=== PATIENT | male | born 1965 | race Caucasian/White ===

== ENCOUNTER 2016-06-08 20:45 | Emergency (ER) | payer OTHER ==
[2016-06-08 21:17] VITALS: BP 113/70
--- NOTE | 2016-06-08 21:41 | UC ---
Throat Pain/Nasal Edgar HPI - HPI Summary HPI Summary: The patient comes in today for: 1. Sore throat Onset: Sore throat for a month. Palliative/provocative: Salt water makes it better. Sitting up makes it better. Laying down makes it worse. Quality: Burning feeling. Like a raw feeling. Region: Above the sternal notch. Severity: 4/10 Time: Constant. Associated symptoms: Previous disease: He states that he had a throat dilation about a year ago. This was done at Dr. Fleming's office. He was put on Reglan for spasm. Hoarseness: Sometimes. Primary care provider: He sees a doctor at [facility]. 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 Endocrine History Of: Denies: Diabetes, Thyroid Disease, Hyperthyroidism, Hypothyroidism, Dyslipidemia Cardiovascular History Of: Reports: Hypertension Denies: Cardiac Disorders, Pacemaker/ICD, Myocardial Infarction, Congestive Heart Failure, Atrial Fibrillation, Deep Vein Thrombosis, Bleeding Disorders Respiratory History Of: Denies: COPD, Asthma, Bronchitis, Pneumonia, Pulmonary Embolism GI/ History Of: Reports: Gastroesophageal Reflux Denies: Ulcer, Gastrointestinal Bleed, Gall Bladder Disease, Kidney Stones, Diverticulitis, Renal Disease, Urosepsis Neurological History Of: Denies: TIA, CVA, Dementia, Seizures, Migraine Psychological History Of: Denies: Anxiety, Depression, Bipolar Disorder, Schizophrenia, Post Traumatic Stress Disorder Cancer History Of: Denies: Lung Cancer, Colorectal Cancer, Breast Cancer, Prostate Cancer, Cervical Cancer Other History Of: Negative For: HIV, Hepatitis B, Hepatitis C, Anticoagulant Therapy - Surgical History Surgical History: Yes Surgery Procedure, Year, and Place: laminectomy -1988. gall bladder removal - 1997. appendectomy. tonsillectomy. bilateral knee arthoscopy. hernia -2009 - Family History Known Family History: Positive: Hypertension - parents Negative: Cardiac Disease, Diabetes - Social History Occupation: Employed Full-time Alcohol Use: None Substance Use Type: None Smoking Status (MU): Never Smoked Tobacco - Immunization History Most Recent Influenza Vaccination: FALL 2015 Review of Systems Constitutional: Negative Skin: Negative Eyes: Negative ENT: Sore Throat Respiratory: Negative Cardiovascular: Negative Gastrointestinal: Negative Genitourinary: Negative All Other Systems Reviewed And Are Negative: Yes Physical Exam Triage Information Reviewed: Yes Appearance: Well-Appearing, No Pain Distress, Well-Nourished Vital Signs: Initial Vital Signs Temp 98.4 F 06/08/16 21:09 Pulse 81 06/08/16 21:09 Resp 20 06/08/16 21:09 BP 113/70 06/08/16 21:09 Pulse Ox 97 06/08/16 21:09 Vital Signs Reviewed: Yes Eyes: Positive: Conjunctiva Clear. Negative: Discharge ENT: Positive: Hearing grossly normal. Negative: Pharyngeal erythema, Nasal congestion, Nasal drainage, TM bulging, TM dull, TM red, Tonsillar swelling, Tonsillar exudate Dental: Negative: Gross Decay/Caries @, Dental Fracture @ Neck: Positive: Supple, Nontender, No Lymphadenopathy. Negative: Nuchal Rigidity Respiratory: Positive: Chest non-tender, Lungs clear, No respiratory distress, No accessory muscle use. Negative: Crackles, Wheezing Cardiovascular: Positive: RRR, No Murmur Abdomen Description: Positive: Nontender, No Organomegaly, Soft. Negative: Distended, Guarding Musculoskeletal: Positive: Strength Intact, ROM Intact Neurological: Positive: Alert, Muscle Tone Normal Psychological: Positive: Age Appropriate Behavior, Consolable Skin: Positive: Other - He has a vascular hemanigoma of the face.. Negative: rashes, breakdown Diagnostics - Laboratory Diagnostic Studies Completed/Ordered: Strep test: (+) Throat Pain/Nasal Course/Dx - Course Course Of Treatment: Patient told of positive strep test. - Differential Dx/Diagnosis Differential Diagnosis/HQI/PQRI: Laryngitis, Pharyngitis, Tonsillitis Provider Diagnoses: Strep throat. Discharge - Discharge Plan Condition: Stable Disposition: HOME Patient Education Materials: Strep Throat (ED) Referrals: MISAEL Aranda [Primary Care Provider] - 1 Week (Please see your primary care provider in about a week to see how well you are doing. If you get worse, please be seen sooner.)
[2016-06-08] MEDS ORDERED: Penicillin VK TAB* 250 MG PO ONE (22:19)
== END 2016-06-08 22:38 | disposition home or self-care (01) ==
LOC: UCCORT 20:45
DX: J02.0 Streptococcal pharyngitis (principal); Z90.49 Acquired absence of other specified parts of digestive tract
CPT/HCPCS: 87651; 99212; A9270-GY; G0463

== ENCOUNTER 2016-08-21 10:03 | Emergency (ER) | payer MEDICAID, OTHER ==
--- NOTE | 2016-08-21 11:56 | UC ---
Ear Complaint HPI - HPI Summary HPI Summary: 50 male presents with complaints of left ear feeling plugged and being unable to hear out of it, symptoms beginning Saturday08/18/16. Patient states he tried running hot water from the shower in his ears without relief. Denies any decreased hearing or feeling plugged in left ear. Denies discharge from the ear , sore throat, fever/chills, discharge from ears and dizziness. Denies PMHx. Has not taken any medication for his symptoms. Has been swimming over the weekend at [employer]. - History of Current Complaint Chief Complaint: UCEar Stated Complaint: EAR PAIN Time Seen by Provider: 08/21/16 11:41 Hx Obtained From: Patient Onset/Duration: Sudden Onset, Lasting Days - 3 Severity Initially: Mild Severity Currently: Moderate Pain Intensity: 2 Pain Scale Used: 0-10 Numeric Aggravating Factors: Nothing Alleviating Factors: Nothing Associated Signs/Symptoms: Positive: Hearing Loss, Foreign Body Sensation - "plugged". Negative: Trauma to Ear, Swelling @, URI Symptoms - Allergies/Home Medications Allergies/Adverse Reactions: Allergies Allergy/AdvReac Type Severity Reaction Status Date / Time No Known Allergies Allergy Verified 08/21/16 11:40 Home Medications: Home Medications Bismuth Subsalicylate [Pepto-Bismol Max Strength] 525 mg PO Q6H PRN 08/21/16 [ History Confirmed 08/21/16] PMH/Surg Hx/FS Hx/Imm Hx Endocrine History Of: Denies: Diabetes, Thyroid Disease, Hyperthyroidism, Hypothyroidism, Dyslipidemia Cardiovascular History Of: Reports: Hypertension Denies: Cardiac Disorders, Pacemaker/ICD, Myocardial Infarction, Congestive Heart Failure, Atrial Fibrillation, Deep Vein Thrombosis, Bleeding Disorders Respiratory History Of: Denies: COPD, Asthma, Bronchitis, Pneumonia, Pulmonary Embolism GI/ History Of: Reports: Gastroesophageal Reflux Denies: Ulcer, Gastrointestinal Bleed, Gall Bladder Disease, Kidney Stones, Diverticulitis, Renal Disease, Urosepsis Neurological History Of: Denies: TIA, CVA, Dementia, Seizures, Migraine Psychological History Of: Denies: Anxiety, Depression, Bipolar Disorder, Schizophrenia, Post Traumatic Stress Disorder Cancer History Of: Denies: Lung Cancer, Colorectal Cancer, Breast Cancer, Prostate Cancer, Cervical Cancer Other History Of: Negative For: HIV, Hepatitis B, Hepatitis C, Anticoagulant Therapy - Surgical History Surgical History: Yes Surgery Procedure, Year, and Place: laminectomy -1988. gall bladder removal - 1997. appendectomy. tonsillectomy. bilateral knee arthoscopy. hernia -2009 - Family History Known Family History: Positive: Hypertension - parents Negative: Cardiac Disease, Diabetes - Social History Alcohol Use: None Substance Use Type: Excessive Caffeine Substance Use Comment - Amount & Last Used: 4 Liters or Regular Caffeinated Soda Daily Smoking Status (MU): Never Smoked Tobacco Household Exposure Type: Cigarettes - Immunization History Most Recent Influenza Vaccination: FALL 2015 Vaccination Up to Date: Yes Review of Systems Constitutional: Negative Skin: Negative ENT: Ear Ache Respiratory: Negative Cardiovascular: Negative Musculoskeletal: Negative Neurological: Negative All Other Systems Reviewed And Are Negative: Yes Physical Exam Triage Information Reviewed: Yes Appearance: Well-Appearing, No Pain Distress, Well-Nourished Vital Signs: Initial Vital Signs Temp 98.5 F 08/21/16 11:37 Pulse 80 08/21/16 11:37 Resp 16 08/21/16 11:37 BP 115/61 08/21/16 11:37 Pulse Ox 98 08/21/16 11:37 Vital Signs Reviewed: Yes Eyes: Positive: Conjunctiva Clear ENT: Positive: Hearing grossly normal - diminished on left side prior to irrigation, improved after irrigation and normal b/l., Pharynx normal, TMs normal - unable to viusalize TM b/l due to cerumen impaction b/l. after irrigation TM appeared normal b/l. Negative: Pharyngeal erythema, Tonsillar swelling, Tonsillar exudate Dental: Negative: Percussion Tenderness @, Cervical Lymphadenopathy Neck: Positive: Supple, Nontender Respiratory: Positive: Chest non-tender, Lungs clear, Normal breath sounds, No respiratory distress, No accessory muscle use Cardiovascular: Positive: RRR, No Murmur, Pulses Normal Bowel Sounds: Positive: Present Musculoskeletal: Positive: Strength Intact, ROM Intact Neurological: Positive: Alert Psychological Exam: Normal Skin Exam: Normal Re-Evaluation - Re-Evaluation First Eval Re-Evaluation Time: 12:15 Change: Improved - ear symptoms have improved after irrigation b/l Ear Complaint Course/Dx - Course Course Of Treatment: ears were irrigated b/l, no signs of infection. educated on use of debrox and proper use of q-tips. follow up with pcp. aware of worsening signs and symptoms to watch out for. - Differential Dx/Diagnosis Differential Diagnosis/HQI/PQRI: Bronchitis, Cerumen Impaction, Foreign Body, Otitis Externa, Otitis Media, URI Provider Diagnoses: cerumen impaction b/l Discharge - Discharge Plan Condition: Stable Disposition: HOME Patient Education Materials: Cerumen Impaction (ED) Referrals: MISAEL Aranda [Primary Care Provider] - Additional Instructions: Use over the counter Debrox as we discussed to help prevent ear wax build up when symptoms begin. Do not stick q-tips into canals, only use on outside of ear. Do not submerge ears under water. Keep clean and dry. If symptoms worsen or new symptoms begin please return. Follow up with PCP.
[2016-08-21 12:02] VITALS: BP 115/61
== END 2016-08-21 12:37 | disposition home or self-care (01) ==
LOC: UCCORT 10:03
DX: H61.23 Impacted cerumen, bilateral (principal)
CPT/HCPCS: 99213; G0463

== ENCOUNTER 2016-10-09 17:26 | Emergency (ER) | payer OTHER ==
[2016-10-09 18:24] VITALS: BP 151/59
--- NOTE | 2016-10-09 18:46 | ED ---
Throat Pain/Nasal Congestion - HPI Summary HPI Summary: 50 yr old male with onset of symptoms one day ago. He complains of sore throat , runny nose, post nasal drip, myalgias, fatigue. he has other ill exposures in the family. He denies fever. He has had prior sinus infections. he has no other complaints. Severity of aches is 4/10. - History of Current Complaint Chief Complaint: UCGeneralIllness Time Seen by Provider: 10/09/16 18:01 - Allergies/Home Medications Allergies/Adverse Reactions: Allergies Allergy/AdvReac Type Severity Reaction Status Date / Time No Known Allergies Allergy Verified 10/09/16 17:59 Home Medications: Home Medications Acetaminophen TAB* [Tylenol TAB*] 650 mg PO Q4H PRN 10/09/16 [History Confirmed 10/09/16] Amitriptyline TAB* [Elavil TAB*] 50 mg PO BEDTIME 10/09/16 [History Confirmed ] Cholecalciferol [Vitamin D3] 10,000 unit PO DAILY 10/09/16 [History Confirmed ] Gemfibrozil TAB* [Lopid TAB*] 600 mg PO BID 10/09/16 [History Confirmed ] Metoclopramide TAB* [Reglan TAB*] 10 mg PO Q8H PRN 10/09/16 [History Confirmed 10/09/16] Pantoprazole TAB (NF) [Protonix TAB (NF)] 20 mg PO DAILY 10/09/16 [History Confirmed 10/09/16] PMH/Surg Hx/FS Hx/Imm Hx Endocrine/Hematology History: Denies: Hx Anticoagulant Therapy, Hx Diabetes, Hx Thyroid Disease Cardiovascular History: Reports: Hx Hypertension Denies: Hx Congestive Heart Failure, Hx Deep Vein Thrombosis, Hx Myocardial Infarction, Hx Pacemaker/ICD Respiratory History: Denies: Hx Asthma, Hx Chronic Obstructive Pulmonary Disease (COPD), Hx Lung Cancer, Hx Pneumonia, Hx Pulmonary Embolism GI History: Denies: Hx Gall Bladder Disease, Hx Gastrointestinal Bleed, Hx Ulcer, Hx Urosepsis History: Denies: Hx Kidney Stones, Hx Renal Disease Sensory History: Denies: Hx Hearing Aid Neurological History: Denies: Hx Dementia, Hx Migraine, Hx Seizures, Hx Transient Ischemic Attacks (TIA) Psychiatric History: Denies: Hx Anxiety, Hx Depression, Hx Panic Disorder, Hx Schizophrenia, Hx Bipolar Disorder - Surgical History Surgery Procedure, Year, and Place: laminectomy -1988. gall bladder removal - 1997. appendectomy. tonsillectomy. bilateral knee arthoscopy. hernia -2009 Infectious Disease History: No Infectious Disease History: Denies: Traveled Outside the [place] in Last 30 Days - Family History Known Family History: Positive: Hypertension - parents Negative: Cardiac Disease, Diabetes - Social History Alcohol Use: None Substance Use Type: Reports: None Substance Use Comment - Amount & Last Used: 4 Liters or Regular Caffeinated Soda Daily Smoking Status (MU): Never Smoked Tobacco Review of Systems Positive: Chills Negative: Drainage Positive: Sore Throat, Nasal Discharge Negative: Palpitations Negative: Shortness Of Breath, Cough Negative: Vomiting, Diarrhea Positive: Myalgia All Other Systems Reviewed And Are Negative: Yes Physical Exam Triage Information Reviewed: Yes Vital Signs On Initial Exam: Initial Vitals Temp Pulse Resp BP Pulse Ox 99.9 F 93 18 151/59 96 10/09/16 18:03 10/09/16 18:03 10/09/16 18:03 10/09/16 18:03 10/09/16 18:03 Vital Signs Reviewed: Yes Appearance: Positive: Well-Appearing, No Pain Distress Skin: Positive: Warm, Skin Color Reflects Adequate Perfusion Head/Face: Positive: Normal Head/Face Inspection Eyes: Positive: EOMI, Conjunctiva Clear ENT: Positive: Pharyngeal erythema, Nasal congestion, Other - positive sinus tenderness on percussion Neck: Positive: Supple, Nontender, No Lymphadenopathy Respiratory/Lung Sounds: Positive: Clear to Auscultation, Breath Sounds Present , Decreased Breath Sounds Cardiovascular: Positive: Normal, RRR. Negative: Murmur Abdomen Description: Positive: Nontender Musculoskeletal: Positive: Normal, Strength/ROM Intact Neurological: Positive: Normal, Sensory/Motor Intact, Alert, Oriented to Person Place, Time, CN Intact II-III Psychiatric: Positive: Normal Diagnostics - Vital Signs Vital Signs Temp Pulse Resp BP Pulse Ox 10/09/16 18:03 99.9 F 93 18 151/59 96 - Laboratory Lab Results: Lab Results 10/09/16 Range/Units 18:13 Group A Strep Rapid Negative (Negative) Lab Statement: Any lab studies that have been ordered have been reviewed, and results considered in the medical decision making process. EENT Course/Dx - Course Course Of Treatment: 50 yr old male with sinus infection. Rx with zithromax - Diagnoses Provider Diagnoses: Sinusitis Discharge - Discharge Plan Condition: Good Disposition: HOME Prescriptions: Azithromycin TAB* [Zithromax TAB (Z-TIMMY) 250 mg #6 tabs] 2 tab PO .TODAY, THEN 1 DAILY #1 timmy Referrals: MISAEL Aranda [Primary Care Provider] -
== END 2016-10-09 19:03 | disposition home or self-care (01) ==
LOC: UCCORT 17:26
DX: J32.9 Chronic sinusitis, unspecified (principal); J02.9 Acute pharyngitis, unspecified; I10 Essential (primary) hypertension; Z90.49 Acquired absence of other specified parts of digestive tract
CPT/HCPCS: 87651; 99212; G0463

== ENCOUNTER 2017-07-15 18:45 | Emergency (ER) | payer BC, OTHER ==
[2017-07-15 20:36] VITALS: BP 126/72
--- NOTE | 2017-07-15 20:57 | UC ---
UC General HPI - HPI Summary HPI Summary: pt is c/o a sore throat. his , grandchild and step son have all been dx with strep throat. no uri. - History of Current Complaint Chief Complaint: UCGeneralIllness Stated Complaint: SORE THROAT Time Seen by Provider: 07/15/17 20:51 Hx Obtained From: Patient Onset/Duration: Gradual Onset, Lasting Days - 1.5 Timing: Constant Pain Intensity: 3 Aggravating: nothing Alleviating: nothing Associated Signs & Symptoms: Negative: Fever - Allergy/Home Medications Allergies/Adverse Reactions: Allergies Allergy/AdvReac Type Severity Reaction Status Date / Time No Known Allergies Allergy Verified 07/15/17 20:37 PMH/Surg Hx/FS Hx/Imm Hx - Additional Past Medical History Additional PMH: gout, OA, vertigo Cardiovascular History: Hypertension GI/ History: Gastroesophageal Reflux Neurological History: Migraine Other History Of: Negative For: HIV, Hepatitis B, Hepatitis C, Anticoagulant Therapy - Surgical History Surgical History: Yes Surgery Procedure, Year, and Place: laminectomy -1988. gall bladder removal - 1997. appendectomy. tonsillectomy. bilateral knee arthoscopy. hernia -2009 - Family History Known Family History: Positive: Hypertension - parents Negative: Cardiac Disease, Diabetes - Social History Lives: With Family Alcohol Use: None Substance Use Type: None Substance Use Comment - Amount & Last Used: 4 Liters or Regular Caffeinated Soda Daily Smoking Status (MU): Never Smoked Tobacco Household Exposure Type: Cigarettes - Immunization History Most Recent Influenza Vaccination: FALL 2015 Vaccination Up to Date: Yes Review of Systems Constitutional: Negative Skin: Negative Eyes: Negative ENT: Sore Throat Respiratory: Negative Cardiovascular: Negative Gastrointestinal: Negative Genitourinary: Negative Motor: Negative Neurovascular: Negative Musculoskeletal: Negative Neurological: Negative Psychological: Negative Is Patient Immunocompromised?: No All Other Systems Reviewed And Are Negative: Yes Physical Exam Triage Information Reviewed: Yes Appearance: Well-Appearing Vital Signs: Initial Vital Signs Temp 98.8 F 07/15/17 20:31 Pulse 82 07/15/17 20:31 Resp 16 07/15/17 20:31 BP 126/72 07/15/17 20:31 Pulse Ox 99 07/15/17 20:31 Vital Signs Reviewed: Yes Eyes: Positive: Conjunctiva Clear ENT: Positive: Pharyngeal erythema, TMs normal, Uvula midline. Negative: Nasal congestion, Nasal drainage, Tonsillar swelling, Tonsillar exudate, Trismus, Muffled voice, Hoarse voice Neck: Positive: Supple, Nontender, Enlarged Nodes @ - peritonsilar Respiratory: Positive: Lungs clear, Normal breath sounds Cardiovascular: Positive: RRR, No Murmur Abdomen Description: Positive: Nontender, No Organomegaly, Soft Bowel Sounds: Positive: Present Musculoskeletal: Positive: ROM Intact Neurological: Positive: Alert Psychological: Positive: Age Appropriate Behavior Skin Exam: Normal Diagnostics - Laboratory Diagnostic Studies Completed/Ordered: Rapid strep=neg Course/Dx - Course Course Of Treatment: rapid strep=neg; however, 3 family members + for strep throat plus exam concerning for strep throat and no uri thus will tx presumptively for strep throat. - Differential Dx - Multi-Symptom Provider Diagnoses: Pharyngitis Discharge - Sign-Out/Discharge Documenting (check all that apply): Discharge/Admit/Transfer - Discharge Plan Condition: Stable Disposition: HOME Prescriptions: Penicillin VK 500 MG TAB(NF) [Penicillin VK 500 mg Tab] 500 mg PO BID #20 tab Patient Education Materials: Pharyngitis (ED) Referrals: MISAEL Aranda [Primary Care Provider] - 7 Days - Billing Disposition and Condition Condition: STABLE Disposition: HOME
[2017-07-15] MEDS ORDERED: Penicillin VK TAB* 250 MG PO ONE (21:18)
== END 2017-07-15 21:27 | disposition home or self-care (01) ==
LOC: UCCORT 18:45
DX: J02.9 Acute pharyngitis, unspecified (principal)
CPT/HCPCS: 87651; 99212; A9270-GY; G0463

== ENCOUNTER 2017-07-28 14:11 | Emergency (ER) | payer BC ==
[2017-07-28 16:37] VITALS: BP 112/61
--- NOTE | 2017-07-28 17:00 | UC ---
Complaint Male HPI - HPI Summary HPI Summary: C/O dysuria with gross hematuria today. Positive urgency. - History of Current Complaint Chief Complaint: UCGU Stated Complaint: URINARY Time Seen by Provider: 07/28/17 16:45 Hx Obtained From: Patient Onset/Duration: Sudden Onset, Lasting Days - 1 Timing: Constant Severity Initially: Mild Severity Currently: Moderate Pain Intensity: 8 Location: Penis Aggravating Factor(s): Voiding Alleviating Factor(s): Nothing Associated Signs And Symptoms: Positive: Hematuria. Negative: Back Pain, Fever , Penile Discharge - Allergies/Home Medications Allergies/Adverse Reactions: Allergies Allergy/AdvReac Type Severity Reaction Status Date / Time No Known Allergies Allergy Verified 07/28/17 16:37 Home Medications: Home Medications Aspirin 81 mg CHEW TAB* 81 mg PO DAILY 07/28/17 [History Confirmed 07/28/17] PMH/Surg Hx/FS Hx/Imm Hx Other History Of: Negative For: HIV, Hepatitis B, Hepatitis C, Anticoagulant Therapy - Surgical History Surgical History: Yes Surgery Procedure, Year, and Place: laminectomy -1988. gall bladder removal - 1997. appendectomy. tonsillectomy. bilateral knee arthoscopy. hernia -2009 - Family History Known Family History: Positive: Hypertension - parents Negative: Cardiac Disease, Diabetes - Social History Occupation: Disabled Lives: With Family Alcohol Use: None Substance Use Type: None Substance Use Comment - Amount & Last Used: 4 Liters or Regular Caffeinated Soda Daily Smoking Status (MU): Never Smoked Tobacco Have You Smoked in the Last Year: No Household Exposure Type: Cigarettes - Immunization History Most Recent Influenza Vaccination: FALL 2015 Vaccination Up to Date: Yes Review of Systems Genitourinary: Dysuria, Hematuria, Frequency, Urgency Is Patient Immunocompromised?: No All Other Systems Reviewed And Are Negative: Yes Physical Exam Triage Information Reviewed: Yes Appearance: Well-Appearing, Well-Nourished, Obese Vital Signs: Initial Vital Signs Temp 99.2 F 07/28/17 16:31 Pulse 82 07/28/17 16:31 Resp 18 07/28/17 16:31 BP 112/61 07/28/17 16:31 Pulse Ox 99 07/28/17 16:31 Vital Signs Reviewed: Yes Neck exam: Normal Respiratory Exam: Normal Cardiovascular Exam: Normal Abdominal Exam: Normal Abdomen Description: Negative: CVA Tenderness (R), CVA Tenderness (L) Musculoskeletal Exam: Normal Neurological Exam: Normal Psychological Exam: Normal Skin Exam: Normal Complaint Male Course/Dx - Differential Dx/Diagnosis Differential Diagnosis/HQI/PQRI: Cancer, Prostatitis, Pyelonephritis, Urinary Tract Infection Provider Diagnoses: Acute hemorrhagic cystitis Discharge - Sign-Out/Discharge Documenting (check all that apply): Discharge/Admit/Transfer - Discharge Plan Condition: Stable Disposition: HOME Prescriptions: Ciprofloxacin HCl [Cipro 500 MG TAB] 500 mg PO BID #14 tab Phenazopyridine 200 mg (NF) [Pyridium 200 MG tab *] 200 mg PO TID PRN #6 tab PRN Reason: Urinary symptoms frequency Patient Education Materials: Urinary Tract Infection in Men (ED), Ciprofloxacin (By mouth), Phenazopyridine (By mouth) Referrals: MISAEL Aranda [Primary Care Provider] - Additional Instructions: if the urine culture is negative, no growth, you will need to see a urologist for further evaluation. - Billing Disposition and Condition Condition: STABLE Disposition: HOME
== END 2017-07-28 17:20 | disposition home or self-care (01) ==
LOC: UCCORT 14:11
DX: N30.00 Acute cystitis without hematuria (principal)
CPT/HCPCS: 81003; 87086; 99212; G0463

== ENCOUNTER 2018-01-16 20:03 | Emergency (ER) | payer BC ==
--- OUTSIDE RECORDS SUMMARY | 2018-01-16 20:11 | XMS REPORT ---
:1965 External Reference #:[id number] Author Organization [facility] Address [address] [place] [address] Phone [phone] Care Team Providers Name Role Phone HCP given Primary Care Physician Unavailable Payers Type Date Identification Numbers Payment Provider Subscriber Commercial Effective: Policy Number: Excellus Hoa Pruett 2017 [id number] Plan PayID: [id number] [address] [address] [place] [address] Problems Date Description Provider Status Onset: 12/17/2017 Essential hypertension Hektor, Suyapa, PA Active Onset: 12/17/2017 Hyperlipidemia Hektor, Suyapa, PA Active Onset: 12/17/2017 Adjustment disorder with mixed emotional Hektor, Suyapa, PA Active features Onset: 12/17/2017 Low back pain Hektor, Suyapa, PA Active Onset: 12/17/2017 Migraine without aura, not refractory Hektor, Suyapa, PA Active Onset: 12/17/2017 Primary gout Hektor, Suyapa, PA Active Onset: 12/17/2017 Obesity Hektor, Suyapa, PA Active Onset: 12/17/2017 Benign paroxysmal positional vertigo Hektor, Suyapa, PA Active Onset: 12/17/2017 Vitamin D deficiency Hektor, Suyapa, PA Active Onset: 12/17/2017 Gastroesophageal reflux disease Hektor, Suyapa, PA Active Onset: 12/18/2017 Prediabetes Hektor, Suyapa, PA Active Family History Date Family Member(s) Problem(s) Comments Father due to Stroke () - age 70 Mother due to Stroke () - age 81 Mother due to Pneumonia () - age 81 Children None Siblings 4 all siblings have anxiety/depression, Hx of alcoholism, HTN Social History Type Date Description Comments Education Highest Level Completed College Marital Status Lives With Lives With Grandchildren grandson Work Status Not Currently Working last worked 1998 Abuse No history of abuse Cigarette Use 12/17/2017 Denies Cigarette Use ETOH Use 12/17/2017 Denies alcohol use former alcoholic Recreational Drug Use 12/17/2017 Denies Drug Use Smoking Non Smoker Daily Caffeine Consumes on average 3 sodas per day Exercise Type/Frequency Exercises sporadically Sun Exposure Uses sunscreen Seat Belt/Car Seat Seat Belt Use - Yes Guns in Home No Smoke Alarms Yes smoke alarm Currently Active Patient is currently sexually active Contraceptive Methods None Age 1st [place] 44 years old Additional Info Sexual preference is women Additional Info Sexual Partners 1-5 Allergies, Adverse Reactions, Alerts Date Description Reaction Status Severity Comments 12/17/2017 NKDA active Medications Medication Date Status Form Strength Qnty SIG Indications Ordering Provider Meclizine HCL 12/17/ Active Tablets 25mg 90tabs 1 tab by H81.10 El 2017 mouth three Taz, times a day M.D. as needed dizziness Meloxicam 12/17/ Active Tablets 7.5mg 60tabs 1 tab by M25.519 El2017 mouth up to Taz, twice daily M.D. as needed for back pain, don't use along with aleve or ibuprofen Acetaminophen 12/16/ Active Tablets 500mg 2 by mouth Unknown Extra Strength 2018 up to 4x/day as needed for pain Glucosamine 12/16/ Active Tablets 2 q am Unknown Chondroitin 2017 Pantoprazole 12/16/ Active Tablets 40mg 1 qd K21.9 Unknown Sodium 2017 Aspir-Low 12/16/ Active Tablets 81mg 1 qd Unknown 2017 Vitamin D 12/16/ Active Tablets 1000Unit 2 by mouth E55.9 Unknown 2018 every day Allopurinol 12/05/ Active Tablets 300mg 1 qd M10.9 Unknown 2018 M10.00 Amitriptyline 12/05/2017 Active Tablets 10mg 30tabs 3 tabs po G43.009 Silcoshalini, HCL daily at Taz, bedtime M.D. Gemfibrozil 11/23/2017 Active Tablets 600mg 180tabs 1 tab by E78.5 Unknown mouth twice a day Ranitidine HCL 11/23/2017 Active Capsules 150mg 1 bid K21.9 Unknown Lisinopril 11/18/2017 Active Tablets 5mg 1 qd I10 Unknown Immunizations CPT Code Status Date Vaccine Lot # [id number] Given 12/17/2017 Influenza Virus Vaccine, Quadrivalent, Split, [id number] Preservative Free Vital Signs Date Vital Result Comment 12/23/2017 BP Systolic 120 mmHg BP Diastolic 80 mmHg 12/17/2017 BP Systolic 112 mmHg BP Diastolic 60 mmHg Height 70 inches 5'10" Weight 259.00 lb BMI (Body Mass Index) 37.2 kg/m2 Results Test Date Test Result H/L Range Note Comp Metabolic Panel 12/17/2017 Sodium 139 mmol/L 135-145 Potassium 4.8 mmol/L 3.5-5.0 Chloride 104 mmol/L 101-111 Co2 Carbon Dioxide 22 mmol/L 22-32 Anion Gap 13 mmol/L High 2-11 Glucose 128 mg/dL High 70-100 Blood Urea Nitrogen 15 mg/dL 6-24 Creatinine 0.91 mg/dL 0.67-1.17 BUN/Creatinine Ratio 16.5 8-20 Calcium 10.0 mg/dL 8.6-10.3 Total Protein 7.6 g/dL 6.4-8.9 Albumin 4.8 g/dL 3.2-5.2 Globulin 2.8 g/dL 2-4 Albumin/Globulin Ratio 1.7 1-3 Total Bilirubin 0.40 mg/dL 0.2-1.0 Alkaline Phosphatase 82 U/L 34-104 Alt 21 U/L 7-52 Ast 19 U/L 13-39 Egfr Non- 86.8 >60 Egfr 105.1 >60 1 Lipid Profile (Trig/Chol/HDL) 12/17/2017 Triglycerides 327 mg/dL 2 Cholesterol 230 mg/dL 3 HDL Cholesterol 32.7 mg/dL 4 LDL Cholesterol 132 mg/dL 5 CBC Auto Diff 12/17/2017 White Blood Count 7.1 10^3/uL 3.5-10.8 Red Blood Count 4.80 10^6/uL 4.00-5.40 Hemoglobin 13.9 g/dL Low 14.0-18.0 Hematocrit 41 % Low 42-52 Mean Corpuscular Volume 86 fL 80-94 Mean Corpuscular Hemoglobin 29 pg 27-31 Mean Corpuscular HGB Conc 34 g/dL 31-36 Red Cell Distribution Width 14 % 10.5-15 Platelet Count 376 10^3/uL 150-450 Mean Platelet Volume 7.9 um3 7.4-10.4 Abs Neutrophils 4.5 10^3/uL 1.5-7.7 Abs Lymphocytes 2.0 10^3/uL 1.0-4.8 Abs Monocytes 0.4 10^3/uL 0-0.8 Abs Eosinophils 0.2 10^3/uL 0-0.6 Abs Basophils 0.1 10^3/uL 0-0.2 Abs Nucleated RBC 0 10^3/uL Granulocyte % 63.3 % 38-83 Lymphocyte % 27.6 % 25-47 Monocyte % 5.3 % 0-7 Eosinophil % 2.7 % 0-6 Basophil % 1.1 % 0-2 Nucleated Red Blood Cells % 0.6 Urinalysis Profile 12/17/2017 Urine Color Yellow Urine Appearance Clear Urine Specific [place] 1.035 High 1.010-1.030 Urine pH 5 5-9 Urine Urobilinogen Negative Negative Urine Ketones Negative Negative Urine Protein Negative Negative Urine Leukocytes Negative Negative Urine Blood Negative Negative Urine Nitrite Negative Negative Urine Bilirubin Negative Negative Urine Glucose Negative Negative Laboratory test finding 12/17/2017 Hemoglobin A1c (Glyco HGB) 6.0 % High 4.0-5.6 6 Vitamin D Total 25(Oh) 66.4 ng/mL High 20-50 PSA Screening 0.528 ng/mL 0-4.000 7 1 Because ethnic data is not always readily available, this report includes an eGFR for both -Americans and non- Americans. The National Kidney Disease Education Program (NKDEP) does not endorse the use of the MDRD equation for patients that are not between the ages of 18 and 70, are , have extremes of body size, muscle mass, or nutritional status, or are non- or non-. According to the National Kidney Foundation, irrespective of diagnosis, the stage of the disease is based on the level of kidney function: Stage Description GFR(mL/min/1.73 m(2)) 1 Kidney damage with normal or decreased GFR 90 2 Kidney damage with mild decrease in GFR 60-89 3 Moderate decrease in GFR 30-59 4 Severe decrease in GFR 15-29 5 Kidney failure <15 (or dialysis) 2 Desirable: <150 Borderline High: 150-199 High: 200-499 Very High: >500 3 Desirable: <200 Borderline High: 200-239 High: >239 4 Low: <40 Desirable: 40-60 High: >60 5 Desirable: <100 Near Optimal: 100-129 Borderline High: 130-159 High: 160-189 Very High: >189 6 Therapeutic target for the treatment of diabetes mellitus patients is <7% HBA1C, and in selective patients <6.0%. Please refer to [place] Diabetes Association diabetic care guidelines for further information. 7 Serum levels of PSA measured using the Sem[employer] [place] DXI Hybritech immunoassay should not be interpreted as absolute evidence of the presence or absence of disease. The PSA value should be used in conjunction with other pertinent clinical diagnostic procedures. A PSA value in the range of 0.1 to 0.6 ng/ml is indeterminate if being used as an indicator of recurrent or residual disease. The values obtained with different assay methods or kits cannot be used interchangeably. Procedures Date CPT Code Description Status 12/23/2017 53085 Omt 7-8 Body Regions Completed 12/17/2017 45682 Remove Impact Cerumen Requiring Instrument, Unilateral Completed 03/25/2016 Colonoscopy Completed Encounters Type Date Location Provider CPT E/M Dx Office Visit 12/23/2017 11:30a Main Office Yomi Mathew D.O. 22727 M54.5 M25.511 M25.512 I10 E78.5 F43.23 G43.009 E66.9 H81.10 K21.9 M99.04 M99.02 M99.05 M99.01 M99.00 M99.03 M99.08 Office Visit 12/17/2017 8:45a [place] [address] I10 E78.5 F43.23 M54.5 M25.519 M10.00 G43.009 E66.9 H61.23 H81.10 E55.9 K21.9 Z23 Plan of Care Future Appointment(s):03/03/2018 11:30 am - Yomi Mathew D.O. at Main Vwzrwp5602/06/2018 8:45 am - Suyapa Osborn PA at Main Dgfklp6212/23/2017 - Yomi Mathew D.O.M54.5 Low back painFollow up:2 months OMMEM25.511 Pain in right valcrqnrO10.512 Pain in left kevdrweeV49 Essential (primary) gbzlysvantspZ40.5 Hyperlipidemia, qsfwbvflfksB98.23 Adjustment disorder with mixed anxiety and depressed moodG43.009 Migraine w/o aura, not intractable, w/o status lqwcimixrfoP27.9 Obesity, ogznnrmdztdB62.10 Benign paroxysmal vertigo, unspecified earK21.9 Gastro-esophageal reflux disease without olcefcplhtkD50.04 Segmental and somatic dysfunction of sacral lvlrplB56.02 Segmental and somatic dysfunction of thoracic givjldP22.05 Segmental and somatic dysfunction of pelvic fwfivfU92.01 Segmental and somatic dysfunction of cervical xoqjjxR07.00 Segmental and somatic dysfunction of head blljcjT41.03 Segmental and somatic dysfunction of lumbar iespaqW60.08 Segmental and somatic dysfunction of rib cage
--- OUTSIDE RECORDS SUMMARY | 2018-01-16 20:11 | XMS REPORT ---
:1965 External Reference #:[id number] Author Organization [facility] Address [address] [place] [address] Phone [phone] Care Team Providers Name Role Phone HCP given Primary Care Physician Unavailable Payers Type Date Identification Numbers Payment Provider Subscriber Commercial Effective: Policy Number: Excellus Hoa Pruett 2017 [id number] Plan PayID: [id number] [address] [address] [place] [address] Problems Date Description Provider Status Onset: 12/17/2017 [...] sexually active Contraceptive Methods None Age 1st [place] 44 years old Additional Info Sexual preference [...] CPT Code Status Date Vaccine Lot # [id number] Given 12/17/2017 Influenza Virus Vaccine, Quadrivalent, Split, [...] Color Yellow Urine Appearance Clear Urine Specific [place] 1.035 High 1.010-1.030 Urine pH 5 5-9 [...] in selective patients <6.0%. Please refer to [place] Diabetes Association diabetic care guidelines for further information. 7 Serum levels of PSA measured using the [employer] [place] DXI Hybritech immunoassay should not be interpreted [...] interchangeably. Procedures Date CPT Code Description Status 12/17/2017 33995 Remove Impact Cerumen Requiring Instrument, Unilateral Completed 03/25/2016 Colonoscopy Completed Encounters Type Date Location Provider CPT E/M Dx Office Visit 12/17/2017 8:45a [place] [address] I10 E78.5 F43.23 M54.5 M25.519 M10.00 G43.009 E66.9 H61.23 H81.10 E55.9 K21.9 Z23 Plan of Care Future Appointment(s):02/06/2018 8:45 am - Suyapa Osborn PA at Main Office
[2018-01-16 20:49] VITALS: BP 137/76
[2018-01-16] MEDS ORDERED: Silver Nitrate/Potassium Nitr* 1 EA STICK TOPICAL ONE (21:03)
--- NOTE | 2018-01-16 21:03 | UC ---
Skin Complaint HPI - HPI Summary HPI Summary: Pt c/o left upper lip bleeding after shaving this morning. 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 Pt sates he has "bleed alot" today. Pt was not applying pressure to area but tapping area with gauze and states he has been weraing multiple bandaids today. Pt denies history of clotting disorder - History of Current Complaint Chief Complaint: UCLaceration Time Seen by Provider: 01/16/18 20:34 Stated Complaint: CUT ON LIP Hx Obtained From: Patient Onset/Duration: Sudden Onset, Lasting Hours, Still Present Skin Exposure Onset/Duration: Hours Ago - this morning Timing: Constant Onset Severity: Moderate Current Severity: None Pain Intensity: 1 Location: Face Character: Redness Aggravating Factor(s): Touch Alleviating Factor(s): Other - bandage with pressure Related History: Other: - shaving - Allergy/Home Medications Allergies/Adverse Reactions: Allergies Allergy/AdvReac Type Severity Reaction Status Date / Time No Known Allergies Allergy Verified 01/16/18 20:29 Home Medications: Home Medications Allopurinol TAB* [Zyloprim 300 MG TAB*] 300 mg PO DAILY 01/16/18 [History Confirmed 01/16/18] Meclizine TAB* [Antivert 12.5 TAB*] 12.5 mg PO Q8H PRN 01/16/18 [History Confirmed 01/16/18] Meloxicam 7.5 mg PO QPM 01/16/18 [History Confirmed 01/16/18] raNITIdine HCl [Ranitidine HCl] 5 mg PO BID 01/16/18 [History Confirmed 01/16/18 ] Review of Systems Constitutional: Negative Skin: Other - bleeding wound Eyes: Negative ENT: Negative Respiratory: Negative Cardiovascular: Negative Gastrointestinal: Negative Genitourinary: Negative Motor: Negative Neurovascular: Negative Musculoskeletal: Negative Neurological: Negative Psychological: Negative Is Patient Immunocompromised?: No All Other Systems Reviewed And Are Negative: Yes PMH/Surg Hx/FS Hx/Imm Hx Previously Healthy: Yes Other History Of: Negative For: HIV, Hepatitis B, Hepatitis C, Anticoagulant Therapy - Surgical History Surgical History: Yes Surgery Procedure, Year, and Place: laminectomy -1988. gall bladder removal - 1997. appendectomy. tonsillectomy. bilateral knee arthoscopy. hernia -2009 - Family History Known Family History: Positive: Hypertension - parents Negative: Cardiac Disease, Diabetes - Social History Occupation: Employed Full-time Lives: With Family Alcohol Use: None Substance Use Type: Other Substance Use Comment - Amount & Last Used: 2 Liters Regular Caffeinated Soda Daily Smoking Status (MU): Never Smoked Tobacco Have You Smoked in the Last Year: No Household Exposure Type: Cigarettes - Immunization History Most Recent Influenza Vaccination: FALL 2015 Vaccination Up to Date: Yes Physical Exam Triage Information Reviewed: Yes Appearance: Well-Appearing Vital Signs: Initial Vital Signs Temp 98.8 F 01/16/18 20:41 Pulse 87 01/16/18 20:41 Resp 20 01/16/18 20:41 BP 137/76 01/16/18 20:41 Vital Signs Reviewed: Yes Eye Exam: Normal ENT Exam: Normal Neck exam: Normal Respiratory: Positive: No respiratory distress Musculoskeletal Exam: Normal Neurological Exam: Normal Psychological Exam: Normal Skin Exam: Other - abrasion, uncontrolled bleeding Course/Dx - Course Course Of Treatment: Pt was instructed to follow up with PCP as needed. - Diagnoses Provider Diagnoses: abrasion from shaving Discharge - Sign-Out/Discharge Documenting (check all that apply): Patient Departure All imaging exams completed and their final reports reviewed: No Studies - Discharge Plan Condition: Stable Disposition: HOME Patient Education Materials: Acute Wound Care (ED), Acute Wounds (ED) Referrals: Irena COLLINS,Suyapa Negrete [Primary Care Provider] - If Needed - Billing Disposition and Condition Condition: STABLE Disposition: Home - Attestation Statements Provider Attestation: I was available for consult. This patient was seen by the KENDY. The patient was not presented to, seen by, or examined by me. -Estuardo
== END 2018-01-16 21:31 | disposition home or self-care (01) ==
LOC: UCCORT 20:03
DX: S00.511A Abrasion of lip, initial encounter (principal); X58.XXXA Exposure to other specified factors, initial encounter; Y92.9 Unspecified place or not applicable; Z77.22 Contact with and (suspected) exposure to environmental tobacco smoke (acute) (chronic); Z86.2 Personal history of diseases of the blood and blood-forming organs and certain disorders involving the immune mechanism
CPT/HCPCS: 17250; 99211; A9270-GY; G0463